=== PATIENT | female | born 1980 | race African-American/Black ===

== ENCOUNTER 2021-07-23 09:39 | Emergency (ER) | payer MEDICAID ==
[~2021-07-23] VITALS: Ht 167.6 cm; Wt 67.0 kg
[2021-07-23] MEDS ORDERED: LORAZEPAM 2MG/ML CPJ IV ONE ×2 (10:15→11:30)
[2021-07-23] MEDS ORDERED: MIDAZOLAM HCL 2 MG/2 ML VIAL IM ONE (10:15)
[2021-07-23 10:36] LABS: CHLORIDE 109 mEq/L (98-107)
[2021-07-23 10:39] LABS: ETHANOL BLOOD < 10 mg/dL
[2021-07-23 10:55] LABS: HCG SCREEN NEGATIVE
[2021-07-23 11:24] LABS: CLARITY URINE CLEAR (CLEAR); COLOR URINE YELLOW (YELLOW); KETONES URINE NEGATIVE (NEGATIVE); LEUKOCYTE ESTERASE URINE 2+ (NEGATIVE); NITRITE URINE POSITIVE (NEGATIVE); OCCULT BLOOD URINE NEGATIVE (NEGATIVE); PROTEIN URINE NEGATIVE (NEGATIVE); SPECIFIC GRAVITY URINE 1.011 (1.005-1.030); UROBILINOGEN URINE 0.2 E.U./dL (0.2-1.0)
[2021-07-23 11:57] LABS: *AMPHETAMINES SCREEN URINE NEGATIVE (NEGATIVE); *BARBITURATES SCREEN URINE NEGATIVE (NEGATIVE); *BENZODIAZEPINES SCREEN URINE NEGATIVE (NEGATIVE)
[2021-07-23 11:58] LABS: *COCAINE SCREEN URINE NEGATIVE (NEGATIVE); CANNABINOID URINE SCREEN NEGATIVE (NEGATIVE); METHADONE URINE SCREEN NEGATIVE (NEGATIVE); PHENCYCLIDINE URINE SCREEN NEGATIVE (NEGATIVE)
[2021-07-23 12:10] LABS: OPIATES URINE SCREEN PRESUMTIVE POSITIVE (NEGATIVE)
[2021-07-23 14:13] VITALS: BP 133/79
== END 2021-07-23 14:15 | disposition home or self-care (01) ==
LOC: ER 09:46 → EDBD 09:46 → ER 14:15
DX: R41.82 Altered mental status, unspecified (principal)
CPT/HCPCS: 36415; 70450; 80053; 80305; 80320; 81003; 84703; 96374; 96376; 99291; J2060; J2250; G0480

== ENCOUNTER 2023-08-24 15:16 | Emergency (ER) | payer MEDICAID ==
[~2023-08-24] VITALS: Ht 165.1 cm; Wt 75.0 kg
[2023-08-24 15:21] VITALS: O2SAT 99
[2023-08-24] MEDS: LEVETIRACETAM 500MG PREMIX 100 ML IV ONE ×2 (15:30)
[2023-08-24 16:15] LABS: EOSINOPHILS % 0.6 % (0.0-5.0); HEMATOCRIT. 40.4 % (36.0-48.0); HEMOGLOBIN. 13.5 g/dL (12.0-16.0); LYMPHOCYTES % 44.3 % (20.0-50.0); MEAN CORPUSCULAR HEMOGLOBIN 31.8 pg (28.0-32.0); MEAN CORPUSCULAR HGB CONC 33.3 g/dL (31.0-37.0); MEAN CORPUSCULAR VOLUME 95.4 fL (81.0-99.0); MEAN PLATELET VOLUME 8.4 fl (7.4-10.4); NEUTROPHILS % 45.1 % (40.0-76.0); PLATELET 286 x1000/uL (130-400); RED BLOOD CELL COUNT 4.24 mill/uL (4.2-5.4); RED CELL DISTRIBUTION WIDTH 13.5 % (11.6-14.6); WHITE BLOOD COUNT 4.4 x1000/uL (4.5-11.0)
[2023-08-24 16:17] LABS: CHLORIDE 108 mEq/L (98-107); POTASSIUM 3.6 mEq/L (3.5-5.1); SODIUM 139 mEq/L (136-145)
[2023-08-24 16:18] LABS: CARBON DIOXIDE 25 mEq/L (21-32)
[2023-08-24 16:19] LABS: CALCIUM 8.5 mg/dL (8.7-10.4)
[2023-08-24 16:23] LABS: CREATININE 0.7 mg/dL (0.6-1.0); GLUCOSE 70 mg/dL (70-105); UREA NITROGEN BLOOD 7 mg/dL (9-23)
[2023-08-24 16:25] LABS: ALANINE AMINOTRANSFERASE 13 IU/L (10-49); ALBUMIN 4.3 g/dL (3.2-4.8); ASPARTATE AMINOTRANSFERASE 16 IU/L (<34)
[2023-08-24 16:26] LABS: BILIRUBIN TOTAL 0.4 mg/dL (0.1-1.0); PROTEIN TOTAL 7.1 g/dL (6.0-8.3)
[2023-08-24 16:33] LABS: HCG SCREEN NEGATIVE
[2023-08-24] MEDS: LACTATED RINGERS 1,000 ML IV SCH (16:40)
[2023-08-24 17:35] VITALS: BP 127/82; PULSE 84; RESP 16; TEMP 98.4
== END 2023-08-24 17:35 | disposition home or self-care (01) ==
LOC: ER 15:16
DX: R56.9 Unspecified convulsions (principal)
CPT/HCPCS: 36415; 80053; 84703; 85025; 93005; 96360; 99284; J1953